=== PATIENT | female | born 1955 | race Two or more races ===

== ENCOUNTER 2017-01-03 12:50 | Emergency (ER) | payer OTHER ==
[~2017-01-03] VITALS: Ht 160 cm; Wt 70.3 kg
[2017-01-03] MEDS ORDERED: NKM (13:17)
[2017-01-03] MEDS ORDERED: Tylenol #3 tab (300mg/30mg) ORAL ONE (14:00)
[2017-01-03] MEDS ORDERED: ACETAMINOPHEN-1 EAC1 ORAL (14:01)
[2017-01-03 14:12] VITALS: BP 112/80
--- NOTE | 2017-01-03 17:13 | Emergency Room Report ---
History of Present Illness General Chief Complaint: Lower Extremity Injury Source: Patient Present Illness HPI 61-year-old female presents ED complaining of left big toe pain. States that yesterday at work she dropped a large bottle of ice on her left foot. Complains of pain and swelling to left big toe. Throbbing, 8/10, worse with walking. Denies any other injuries. No other aggravating relieving factors. Denies any other associated symptoms Allergies: Coded Allergies: No Known Allergies (Unverified , 01/03/17) Patient History Past Medical History: none Past Surgical History: none Pertinent Family History: none Social History: Denies: alcohol use, drug use, smoking Last Menstrual Period: PM Now: No Immunizations: UTD Reviewed Nursing Documentation: PMH: Agreed, PSxH: Agreed Nursing Documentation-PMH Past Medical History: No Stated History Review of Systems All Other Systems: negative except mentioned in HPI Physical Exam Vital Signs Date Time Temp Pulse Resp B/P Pulse Ox O2 Delivery O2 Flow Rate FiO2 01/03/17 13:11 98.8 72 16 112/80 97 Room Air Sp02 EP Interpretation: reviewed, normal General Appearance: no apparent distress, alert, GCS 15, non-toxic Head: normocephalic Eyes: bilateral eye PERRL, bilateral eye normal inspection ENT: normal ENT inspection Neck: normal inspection Respiratory: normal inspection Cardiovascular #1: normal inspection Gastrointestinal: normal inspection Rectal: deferred Genitourinary: no CVA tenderness Musculoskeletal: swelling - L big toe pain/swelling Neurologic: alert, oriented x3, responsive, motor strength/tone normal, sensory intact, speech normal Psychiatric: normal inspection Skin: normal inspection Lymphatic: normal inspection Medical Decision Making Diagnostic Impression: Primary Impression: Toe fracture Qualified Codes: S92.425A - Nondisplaced fracture of distal phalanx of left great toe, initial encounter for closed fracture ER Course Hospital Course T11-year-old female presents ED complaining of left big toe pain and swelling after dropping heavy object on foot Differential diagnoses include: Fracture, dislocation, sprain, contusion Clinical course Patient placed on stretcher. After initial history and physical, I ordered pain medications and Xrays of L foot Xrays prelim read shows distal fx L big toe. nondisplaced. placed in cast shoe Diagnosis - toe fracture Stable and discharged to home with prescription for Tylenol #3. apply ice, keep elevated. weight bear as tolerated. Followup with PMD. Return to ED if symptoms recur or worsen Other X-Ray Diagnostic Results Other X-Ray Diagnostic Results : X-Ray ordered: L foot # of Views/Limited Vs Complete: 3 View Indication: Pain EP Interpretation: Yes Interpretation: no dislocation, no soft tissue swelling, other - L big toe fx Impression: Other - L big toe fx Interpreting ER Provider: Electronically signed by Adilson Ashby MD Last Vital Signs Date Time Temp Pulse Resp B/P Pulse Ox O2 Delivery O2 Flow Rate FiO2 01/03/17 14:12 98.8 16 112/80 97 Room Air 01/03/17 13:11 72 Status: improved Disposition: HOME, SELF-CARE Condition: Stable Scripts Acetaminophen With Codeine (T#3) (TYLENOL #3 TAB*) Y Tab 1 TAB ORAL Q8H Y for For Pain, #20 TAB Prov: ADILSON ASHBY M.D. 01/03/17 Referrals: NOT CHOSEN IPA/,REFERRING (PCP) Departure Forms: Return to Work Return to Work Date: Jan 05, 2017 Work Restrictions: No Prolonged Standing Patient Instructions: Toe Fracture With [facility] ADILSON ASHBY M.D. Jan 03, 2017 17:13
--- NOTE | 2017-01-04 10:31 | Diagnostic Imaging Report ---
Indications: PAIN Technique: 3 views of the left foot Comparison: None Findings: There is a transverse fracture of the first distal phalanx. This is nondisplaced but possibly comminuted. No other acute fractures. No dislocations. Impression: Positive for first distal phalangeal fracture Electronic medical record indicates this was recognized by the emergency department physician
== END 2017-01-03 14:13 | disposition home or self-care (01) ==
LOC: EMR 13:25
DX: S92.425A Nondisplaced fracture of distal phalanx of left great toe, initial encounter for closed fracture (principal); W22.8XXA Striking against or struck by other objects, initial encounter; Y93.9 Activity, unspecified; Y92.9 Unspecified place or not applicable
CPT/HCPCS: 99283